=== PATIENT | male | born 1975 | race Caucasian/White ===

== ENCOUNTER 2016-07-09 19:59 | Emergency (ER) | payer OTHER ==
[~2016-07-09] VITALS: Ht 177.8 cm; Wt 78.5 kg
[2016-07-09] MEDS ORDERED: TOPIRAMATE25 M2 PO (20:10)
[2016-07-09] MEDS ORDERED: NALTREXONE HCL50 M1 PO (20:10)
[2016-07-09] MEDS ORDERED: GABAPENTIN300 M2 PO (20:11)
--- NOTE | 2016-07-09 20:15 | ED GENERAL ADULT ---
History of Present Illness General Chief Complaint: ETOH/Drug Related Complaint Stated Complaint: BIBA DIFF BREATHING Source: patient, EMS Exam Limitations: intoxication, patient uncooperative Allergies Coded Allergies: No Known Allergies (07/09/16) Reconcile Medications Gabapentin (Unknown Strength) CAPSULE (Unknown Dose) PO DAILY UNKNOWN ( Reported) Naltrexone HCl (Unknown Strength) TABLET (Unknown Dose) PO DAILY MENTAL HEALTH (Reported) Topiramate (Unknown Strength) TABLET (Unknown Dose) PO BID MIGRAINES ( Reported) Triage Note: PT BIBA AFTER HE CALLED HOTLINE SECONDARY TO SI THOUGHTS. HE REPORTS TO HAVE BEEN WATCHING A MOVIE BY THE [email or web address] WHEN HE BECAME VERY ANGRY ABOUT THE . THE AMBULANCE WAS ON THE WAY TO THE [place] WHEN HE BECAME UNRESPONSIVE AND EXPERIENCE SEIZURE LIKE ACTIVITY FOR THEY DETOURED HERE. ON ARRIVAL HE IS ALERT AND ORIENTED, ADMITTS TO USING HEROIN, MUSCLE RELAXANTS AND ETOH. Triage Nurses Notes Reviewed? yes HPI: Patient is a 40-year-old male in by ambulance for evaluation of suicidal ideation and seizure. Patient reportedly was watching a movie when he got upset and called the suicide hotline and told him that he wants to end his life with a plan to take muscle relaxants and overdose. Patient reportedly told police that he would fight with the police necessary to facilitate his suicidal plan. Patient has suicidal ideation daily according to him. Patient drank "a couple of beers" today. Patient reports he took one pill of Flexeril. Patient denies using any opiates today but reportedly told the suicide hotline that he used heroin today. Patient reports that he has a seizure disorder, has seizures quite frequently", will not tell me when the last time he had a seizure was. EMS reports the patient had a 2-3 minute tonic-clonic seizure during transport, was supposed to be transported to the [facility] but was diverted to [facility] when he had the seizure. Patient denies recent trauma, head injury, chest pain, abdominal pain (LAN SCRUGGS,NICOLASA) Vital Signs & Intake/Output Vital Signs & Intake/Output Vital Signs Date Time Temp Pulse Resp B/P B/P Pulse O2 O2 Flow FiO2 Mean Ox Delivery Rate 07/10 1129 98.6 64 20 134/82 98 Room Air Past History Travel History Traveled to [place] past 21 day No Medical History Any Pertinent Medical History? see below for history Psychiatric: PTSD POLYSUBSTANCE ABUSE. Surgical History Surgical History: non-contributory Psychosocial History What is your primary language Tristanian Tobacco Use: Never used Family History Hx Contributory? No (NICOLASA BRIONES) Review of Systems Review of Systems Constitutional: Denies: chills, fever. EENTM: Denies: blurred vision. Respiratory: Denies: cough, short of breath. Cardiovascular: Denies: chest pain. GI: Denies: abdominal pain, vomiting. Musculoskeletal: Denies: back pain, neck pain. Skin: Reports: no symptoms. Neurological/Psychological: Reports: see HPI. Hematologic/Endocrine: Denies: bruising, bleeding. Immunologic/Allergic: Reports: no symptoms. (NICOLASA BRIONES) Physical Exam Physical Exam General Appearance: intoxicated Head: atraumatic, normal appearance Eyes: Bilateral: normal appearance, PERRL, EOMI. Ears, Nose, Throat: normal pharynx, normal ENT inspection, hearing grossly normal Neck: normal inspection, supple, full range of motion, no midline tenderness Respiratory: normal breath sounds, chest non-tender, no respiratory distress, lungs clear Cardiovascular: regular rate/rhythm (no appreciable murmur) Gastrointestinal: soft, non-tender Back: normal inspection, normal range of motion, no vertebral tenderness Extremities: normal inspection, normal capillary refill, normal range of motion Neurologic/Psych: no motor/sensory deficits, awake, appears intoxicated. Positive suicidal ideation. Skin: warm/dry Lymphatic: no anterior cervical cuco Core Measures ACS in differential dx? No CVA/TIA Diagnosis: No Severe Sepsis Present: No Septic Shock Present: No (NICOLASA BRIONES) Progress Differential Diagnoses I considered the following diagnoses in my evaluation of the patient: depression , anxiety, polysubstance abuse, overdose, psychosis Diagnostic Imaging: Viewed by Me: CT Scan. Discussed w/RAD: CT Scan. Radiology Impression: PATIENT: NICOLASA SANTAMARIA PRESENT AGE: 40 PATIENT ACCOUNT NO: [id number] : 76 LOCATION: [facility] ORDERING PHYSICIAN: NICOLASA SCRUGGS SERVICE DATE: 07/09/16 EXAM TYPE: CAT - CT HEAD WO IV CONTRAST EXAMINATION: CT HEAD WITHOUT CONTRAST CLINICAL INFORMATION: Altered mental status. Overdose. COMPARISON: None. TECHNIQUE: Contiguous axial imaging was performed from the skull base to vertex without intravenous administration of contrast. DLP: 633 mGy-cm FINDINGS: No acute intracranial abnormality. No acute intracranial hemorrhage, mass or mass effect or abnormal extra-axial fluid collections. The density within the dural venous sinuses is within normal limits. The ventricles are normal in size, without hydrocephalus. There are no focal areas of hypoattenuation within a vascular distribution to suggest acute transcortical ischemia. The basilar cisterns are patent. No acute calvarial abnormality is identified. Soft tissues appear unremarkable. The imaged paranasal sinuses and mastoid air cells are well aerated. IMPRESSION: No acute intracranial pathology. DICTATED BY: TOO KUMAR MD DATE/TIME DICTATED:07/09/162332 SOCIAL WELFARE ADMINISTRATOR:DARCY DATE/TIME TRANSCRIBED:07/09/162332 CONFIDENTIAL, DO NOT COPY WITHOUT APPROPRIATE AUTHORIZATION. <Electronically signed in Other Vendor System> SIGNED BY: TOO KUMAR MD 07/09/162337 Initial ED EKG: normal axis, normal intervals, normal p-waves, normal QRS complex, normal sinus rhythm, no ST T wave changes Rhythm Strip: normal sinus rhythm Hand-Off Endorsed To: MERLINE RUSSO MD Endorsed Time: 012 Pending: consult (crisis), labs (urine drug screen), other (ciwa monitoring) (NICOLASA BRIONES) Differential Diagnoses I considered the following diagnoses in my evaluation of the patient: Plan of Care: Orders Procedure Date/time Status Add-on Test (ER Only) 07/10 0045 Active CIWA 07/10 44 Active MAGNESIUM 07/09 2114 Complete Telemetry/Congregational Care Pastor 07/09 2029 Active ED CRISIS PSYCH CONSULT 07/09 2029 Active Continuous Observation Monitor 07/09 2014 Active URINE DRUG SCREEN FOR ER ONLY 07/09 2014 Complete ACETOMINOPHEN 07/09 2014 Complete SALICYLATE 07/09 2014 Complete PROLACTIN 07/09 2014 Complete ETHANOL 07/09 2014 Complete COMPREHENSIVE METABOLIC PANEL 07/09 2014 Complete CBC WITHOUT DIFFERENTIAL 07/09 2014 Complete EKG 07/09 2014 Active Laboratory Tests 07/10/16 0933: Urine Opiates Screen < 100.00, Methadone Screen < 40, Barbiturate Screen < 60, Ur Phencyclidine Scrn < 6.00, Amphetamines Screen < 100, U Benzodiazepines Scrn > 800 H, Urine Cocaine Screen < 50, Urine Cannabis Screen < 5.00 07/09/16 2115: Anion Gap 14, Estimated GFR > 60, BUN/Creatinine Ratio 16.0, Glucose 103 H, Calcium 8.1 L, Magnesium 2.0, Total Bilirubin 0.3, AST 24, ALT 35, Alkaline Phosphatase 64, Total Protein 7.2, Albumin 4.5, Globulin 2.7, Albumin/Globulin Ratio 1.7, Prolactin 41.2 H, CBC w Diff NO MAN DIFF REQ, RBC 4.42 L, MCV 94.3 H, MCH 31.8 H, RDW 14.4, MPV 6.6 L, Gran % 51.2, Lymphocytes % 41.8, Monocytes % 4.0, Eosinophils % 2.6, Basophils % 0.4, Absolute Granulocytes 2.5, Absolute Lymphocytes 2.0, Absolute Monocytes 0.2, Absolute Eosinophils 0.1, Absolute Basophils 0, PUBS MCHC 33.7, Salicylates < 1.0, Acetaminophen < 10.0 L, Serum Alcohol 257.0 2054: Patient refusing blood work and CT scan imaging on initial exam. Discussed with patient that he is on a police paper and would not be able to see psychiatry until recently finished a medical evaluation. Patient continues to refuse. No acute signs of trauma, no arrhythmias on exam. Discussed with Dr. Russo. 2109: Patient agreed to blood work. 2199: Patient had episode of tonic clonic movements. Dr. Russo at bedside. Patient responded to Dr. Russo during her exam. Was medicated with Ativan. 2299: Patient threatened to leave multiple times, was redirectable by Osmin APARICIO. (NICOLASA BRIONES) Hand-Off Endorsed To: SCOTT QUEVEDO MD Endorsed Time: 07 Pending: consult (CRISIS) (MERLINE RUSSO MD) Comments: Cleared by psychiatry for outpatient follow up (SCOTT QUEVEDO MD) Departure Departure Condition: Stable Referrals: UNKNOWN (PCP/Family) (NICOLASA BRIONES) PA/CUSTOMER ACQUISITION MANAGER Co-Sign Statement Statement: ED Attending supervision documentation- [X] I saw and evaluated the patient. I have also reviewed all the pertinent lab results and diagnostic results. I agree with the findings and the plan of care as documented in the PA's/CUSTOMER ACQUISITION MANAGER's documentation. [X] I have reviewed the ED Record and agree with the PA's/CUSTOMER ACQUISITION MANAGER's documentation. [] Additions or exceptions (if any) to the PAs/CUSTOMER ACQUISITION MANAGER's note and plan are summarized below: [] (MERLINE RUSSO MD) Departure Time of Disposition: 1121 Disposition: HOME OR SELF CARE Clinical Impression Primary Impression: Depression with suicidal ideation Additional Instructions: Follow up as recommended by the medical social worker Departure Forms: General Discharge Information (SCOTT QUEVEDO MD) Critical Care Note Critical Care Note Critical Care Time: non-applicable (NICOLASA BRIONES) Hand-Off Endorsed To: SCOTT QUEVEDO MD Endorsed Time: 0700 Pending: consult (CRISIS) (MERLINE RUSSO MD) Comments: Cleared by psychiatry for outpatient follow up (SCOTT QUEVEDO MD) Departure Departure Condition: Stable Referrals: UNKNOWN (PCP/Family) (NICOLASA BRIONES) PA/CUSTOMER ACQUISITION MANAGER Co-Sign Statement Statement: ED Attending supervision documentation- [X] I saw and evaluated the patient. I have also reviewed all the pertinent lab results and diagnostic results. I agree with the findings and the plan of care as documented in the PA's/CUSTOMER ACQUISITION MANAGER's documentation. [X] I have reviewed the ED Record and agree with the PA's/CUSTOMER ACQUISITION MANAGER's documentation. [] Additions or exceptions (if any) to the PAs/CUSTOMER ACQUISITION MANAGER's note and plan are summarized below: [] (MERLINE RUSSO MD) Departure Time of Disposition: 1121 Disposition: HOME OR SELF CARE Clinical Impression Primary Impression: Depression with suicidal ideation Additional Instructions: Follow up as recommended by the medical social worker Departure Forms: General Discharge Information (SCOTT QUEVEDO MD) Critical Care Note Critical Care Note Critical Care Time: non-applicable (NICOLASA BRIONES)
[2016-07-09 21:34] LABS: ABSOLUTE BASOPHIL COUNT 0 /CUMM (0.0-0.2); ABSOLUTE EOSINOPHIL COUNT 0.1 /CUMM (0.0-0.7); ABSOLUTE GRANULOCYTE CT 2.5 /CUMM (1.4-6.5); ABSOLUTE MONOCYTE COUNT 0.2 /CUMM (0.10-0.60); BASOPHIL % 0.4 % (0.0-2.0); EOSINOPHIL % 2.6 % (0-5); GRANULOCYTE % 51.2 % (42.2-75.2); HEMATOCRIT 41.7 % (42-52); MEAN CORPUSCULAR HGB 31.8 PG (27.0-31.0); MEAN CORPUSCULAR HGB CONC 33.7 G/DL (33.0-37.0); MEAN CORPUSCULAR VOLUME 94.3 FL (80.0-94.0); MEAN PLATELET VOLUME 6.6 FL (7.4-10.4); PLATELET COUNT 231 /CUMM (130-400); RBC DISTRIBUTION WIDTH 14.4 % (11.5-14.5); RED BLOOD CELL CT 4.42 /CUMM (4.70-6.10); WHITE BLOOD CELL COUNT 4.9 /CUMM (4.8-10.8)
--- NOTE | 2016-07-09 23:38 | CT SCAN REPORT ---
EXAMINATION: CT HEAD WITHOUT CONTRAST CLINICAL INFORMATION: Altered mental status. Overdose. COMPARISON: None. TECHNIQUE: Contiguous axial imaging was performed from the skull base to vertex without intravenous administration of contrast. DLP: 633 mGy-cm FINDINGS: No acute intracranial abnormality. No acute intracranial hemorrhage, mass or mass effect or abnormal extra-axial fluid collections. The density within the dural venous sinuses is within normal limits. The ventricles are normal in size, without hydrocephalus. There are no focal areas of hypoattenuation within a vascular distribution to suggest acute transcortical ischemia. The basilar cisterns are patent. No acute calvarial abnormality is identified. Soft tissues appear unremarkable. The imaged paranasal sinuses and mastoid air cells are well aerated. IMPRESSION: No acute intracranial pathology.
--- NOTE | 2016-07-10 10:48 | ED PSYCH CRISIS CONSULTATION ---
Crisis Consult Basic Assessment Date of Consult: 07/10/16 Responsible Person/Accompanied By: self Insurance Authorization: Insurance #1: Insurance name: [employer] [place]. Phone number: Policy number: [id number] Group number: Authorization number: ED Provider: Patient's ED Provider: HIRA BRIONES Primary Care Physician: Patient's PCP: UNKNOWN PCP's Phone Number: Current Psychiatrist: Dr. Mercado at the [facility] Chief Complaint: ETOH/Drug Related Complaint Patient's Quote: "I'm not suicidal. I just needed someone to talk to." Present Illness: Pt is a 40yo male who was BIBA. He was being brought to the [facility] by ambulance after calling their suicide hotline, but on the way there he had a seizure and was brought to [facility] as it was closer. Pt was intoxicated with a BAL of 257 at 21:15 on 07/09/16. While Pt was intoxicated he told ED staff that he was suicidal with a plan to overdose muscle relaxers. Pt also told them that he did heroin. Pt's utox is not positive for heroin but it is positive for benzos which her was given for his seizures. Upon crisis eval today while pt is sober, he denied using heroin, and does not recall stating that he did. He denies active SI and says he called the hotline and asked to go to the [facility] because he was depressed and wanted to talk. He explained that he was watching a war movie last night and it made him depressed because on July 28 it will be the anniversary of his friend's who was killed by a sniper. His friend served in the [employer] with him. Pt explained that the movie triggered this for him and he relapsed and "drank a couple of beers." Pt says he drinks about once a week. Pt reports that he has been sober for 2 weeks currently until he drank last night because he was upset that he war movie made him think of his friend that he lost. He identifies that he used to drink more frequently, but was in a detox for 10 days at the [facility] 3 years ago. Pt denies any other substance use. Pt denies any hx of suicide attempts and denies any hx of inpt psych tx. Pt reports that he is currently in out pt tx at the [facility] with Dr. Mercado for Depression, Anxiety, and PTSD. He reports that he meets with Dr. Mercado every Monday. Pt identified that he spends his days working in the [email or web address] program as well as exercising. Pt lives alone, but identifies his father Hira Gonzalez JR as a support. Crisis attempted to call Pt's father for collateral, and left a VM. Due to it being Monday, this clinician is not able to reach Dr. Mercado for collateral. When this clinician returned to pt's room to ask if there was other collateral to be called, pt's girlfriend Marva Miguel had arrived in his room. This clinician brought her to another room to speak with her privately. She reflected the same as what pt explained that he has been sober and that this is a difficulty time of year for him due to the anniversary of his friend's . She reports that pt and she have been dating for a few months but she has been good friends with him for several years. She also states that pt has never tried to kill himself and that she does not think that he ever would as he always reaches out for help when his depressive sx increase. She requested to bring him home. Pt was offered in psych tx, and he declined requesting to be discharged for his girlfriend to take him home. Pt denies active SI and agrees that he would reach out and call the [facility] suicide hotline again for help again as he did if he had any suicidal thoughts. He plans to meet with Dr. Dr. Mercado on Monday. Case reviewed with Dr. Fraga of Psychiatry who approved dispo plan. Patient's Address: [address] [place] [address] Other Phone Number: Who Do You Live With? Patient/Self Family/Informants Interviewed: Girlfriend Allergies - Coded Allergies: No Known Allergies (07/09/16) Current Medications - Scheduled Medications Gabapentin (Unknown Strength) CAPSULE (Unknown Dose) PO DAILY UNKNOWN ( Reported) Entered as Reported by BENNY HIDALGO on 07/09/162010 Naltrexone HCl (Unknown Strength) TABLET (Unknown Dose) PO DAILY MENTAL HEALTH (Reported) Entered as Reported by BENNY HIDALGO on 07/09/162009 Topiramate (Unknown Strength) TABLET (Unknown Dose) PO BID MIGRAINES ( Reported) Entered as Reported by BENNY HIDALGO on 07/09/162009 Laboratory Results: Laboratory Tests 07/10/16 0933: Urine Opiates Screen < 100.00, Methadone Screen < 40, Barbiturate Screen < 60, Ur Phencyclidine Scrn < 6.00, Amphetamines Screen < 100, U Benzodiazepines Scrn > 800 H, Urine Cocaine Screen < 50, Urine Cannabis Screen < 5.00 07/09/16 2115: Anion Gap 14, Estimated GFR > 60, BUN/Creatinine Ratio 16.0, Glucose 103 H, Calcium 8.1 L, Magnesium 2.0, Total Bilirubin 0.3, AST 24, ALT 35, Alkaline Phosphatase 64, Total Protein 7.2, Albumin 4.5, Globulin 2.7, Albumin/Globulin Ratio 1.7, Prolactin 41.2 H, CBC w Diff NO MAN DIFF REQ, RBC 4.42 L, MCV 94.3 H, MCH 31.8 H, RDW 14.4, MPV 6.6 L, Gran % 51.2, Lymphocytes % 41.8, Monocytes % 4.0, Eosinophils % 2.6, Basophils % 0.4, Absolute Granulocytes 2.5, Absolute Lymphocytes 2.0, Absolute Monocytes 0.2, Absolute Eosinophils 0.1, Absolute Basophils 0, PUBS MCHC 33.7, Salicylates < 1.0, Acetaminophen < 10.0 L, Serum Alcohol 257.0 Past History Past Medical History Psychiatric: PTSD POLYSUBSTANCE ABUSE. Psychosocial History Strengths/Capabilities: Reaches out for help. Engaged in tx Psychiatric Treatment History Psych Treatment Psychiatric Treatment Yes Inpatient Treatment No Out[facility] Depression, Anxiety, PTSD Dates of Treatment current Response to Treatment good Diagnosis by History: Depression, Anxiety, PTSD Substance Use/Abuse History Drug Use/Abuse Substances Used/Abused Yes Substance Used/Abused Alcohol First Use 22 Last Used last night How much used/taken "a couple of beers" How often 1x weeekly For how long since age 22 Route of use po Substance Abuse Treatment Substance Abuse Treatment Past Substance Abuse [place] Yes Inpatient Treatment Yes Outpatient Treatment Yes [facility] Alcohol use Dates of Treatment 3 years ago Response to Treatment variable Current Mental Status Mental Status Orientation: Person, Place, Situation Affect: WNL Speech: WNL Neuro-vegetative: Appetite Decreased, Sleep Disturbance Appearance Appearance- Dress/Hygiene: well groomed, multiple tatoos , good eye contact Behaviors Thought Process: WNL Thought Content: WNL Memory: WNL Insight: WNL SI/HI Risk Assessment Past Suicidal Ideation/Attempts No Current Suicidal Ideation/Att No Past Homicidal Ideation/Att: No Current Homicidal Ideation/Attempts No Degree of Intent: None Risk Factors: high anxiety/distress, substance abuse, lives alone, male Lethality Ratin (mild) PTSD Checklist PTSD Done? patient declined ED Management Sitter: Yes Restraints: No DSM5/PS Stressors/Medical Prob Diagnosis' (DSM 5, Stressors, Medical): Unspecified Depression F32.9, Alcohol use d/o f10.20, Seizure disorder Current GAF: 45 Departure Disposition Psych Medical Clearance Date: 07/10/16 Medically Cleared at: 1030 Time Started: 1030 Time Ended: 1100 Psychiatrist Consulted: Dr. Fraga Date Disposition Established: 07/10/16 Time Disposition Established: 1100 Plan for Disposition - Modality: [facility] Follow[facility]up Appt Date: 07/12/16 Rationale for Disposition: Pt denies active SI and agrees to reach out for help if he has any SI. Referrals UNKNOWN (PCP/Family)
[2016-07-10 11:29] VITALS: BP 134/82
== END 2016-07-10 12:07 ==
LOC: ERH 19:59
PROVIDERS: Physician Assistant
DX: F32.9 Major depressive disorder, single episode, unspecified (principal); R45.851 Suicidal ideations
CPT/HCPCS: 80307; 93005; 93010; 96372; 96374; G0463; G0480